=== PATIENT | female | born 1980 | race Caucasian/White ===

== ENCOUNTER 2017-03-27 06:18 | Day surgery (SDC) | payer OTHER ==
[2017-03-20 10:36] VITALS: BMI 24.5
[2017-03-27 06:57] VITALS: RESP 18
[2017-03-27] MEDS ORDERED: Propofol 10 mg/ml Inj (20 ML) ONE (07:13)
[2017-03-27] MEDS ORDERED: Succinylcholine 200 mg/10 ml Inj IV ONE (07:13)
[2017-03-27] MEDS ORDERED: Rocuronium 10 mg/ml (5 ml) ONE (07:13)
[2017-03-27] MEDS ORDERED: ePHEDrine 50 mg/ml Inj ONE (07:13)
[2017-03-27] MEDS ORDERED: Phenylephrine 10 mg/ml Inj ONE (07:14)
[2017-03-27 07:24] LABS: BASO % 0.7 % (0.0-2.0); EOS # 0.4 K/uL (0.0-0.7); EOS % 6.9 % (0.0-4.0); HEMOGLOBIN 11.3 g/dL (12.0-16.0); LYMPH # 1.7 K/uL (1.0-4.3); LYMPH % 33.7 % (20.0-40.0); MEAN CORPUSCULAR HEMOGLOBIN 26.2 pg (27.0-31.0); MEAN PLATELET VOLUME 8.5 fl (7.2-11.7); MONO # 0.4 K/uL (0.0-0.8); MONO % 8.4 % (0.0-10.0); NEUT # 2.6 K/uL (1.8-7.0); NEUT % 50.3 % (50.0-75.0); NRBC % 0.2 % (0.0-0.0); RBC 4.31 Mil/uL (3.80-5.20); RED CELL DISTRIBUTION WIDTH 20.5 % (11.5-14.5); WHITE BLOOD COUNT 5.1 K/uL (4.8-10.8)
--- NOTE | 2017-03-27 07:26 | CP.SDSHP ---
Same Day Surgery H & P - History Proposed Procedure: laparoscopic BTL Pre-Op Diagnosis: multiparity and voluntary sterilization - Previous Medical/Surgical History Previous Surgical History: D/C 1997 for spt Ab. - Allergies Allergies: Allergies No Known Allergies Allergy (Verified 03/27/17 07:01) - Current Medications Current Medications: OC - Physical Exam General Appearance: NAD w/o x3 Vital Signs: Vital Signs 03/27/17 06:55 Temperature 98.5 F Pulse Rate 73 Respiratory 18 Rate Blood Pressure 126/77 O2 Sat by Pulse 99 Oximetry Mental Status: Alert & Oriented x3 Neuro: WNL Heart: WNL Lungs: WNL GI: WNL - {Optional Preform as Required} Breast: WNL Abdomen: WNL Rectal: WNL Integument: WNL COMBAT ENGINEER: WNL - Impression Impression: multiparity and desires permanent sterilization - Date & Time Date: 03/27/17 Time: 07:27 Short Stay Discharge - Short Stay Discharge Admitting Diagnosis/Reason for Visit: Z64.1 Disposition: HOME/ ROUTINE Referrals: Navi Amezcua MD [Primary Care Provider] -
[2017-03-27] MEDS ORDERED: Lactated Ringer's 1,000 ML IV ONE (07:43)
[2017-03-27] MEDS ORDERED: Midazolam 2 MG/2 ML VIAL ONE (07:44)
[2017-03-27] MEDS ORDERED: Neostigmine Methylsulfate 3mg/3ml Syringe IV ONE (08:06)
[2017-03-27] MEDS ORDERED: Dexamethasone 4 mg/1 ml ONE (08:07)
[2017-03-27] MEDS ORDERED: Oxycodone/Acetaminophen 5/325 mg Tab PO PRN (08:32)
[2017-03-27] MEDS: HYDROmorphone 0.5 mg/0.5 ml ISec IVP PRN ×3 (08:55→09:15)
--- NOTE | 2017-03-27 13:14 | CP.SDSHP ---
Same Day Surgery H & P - Allergies Allergies: Allergies No Known Allergies Allergy (Verified 03/27/17 07:01) - Physical Exam Vital Signs: Vital Signs 03/27/17 03/27/17 03/27/17 06:55 07:00 08:32 Temperature 98.5 F 96.2 F L Pulse Rate 73 73 77 Respiratory 18 17 Rate Blood Pressure 126/77 124/77 O2 Sat by Pulse 99 100 Oximetry 03/27/17 03/27/17 03/27/17 08:45 09:00 09:15 Temperature 96.4 F L Pulse Rate 61 54 L 53 L Respiratory 18 18 18 Rate Blood Pressure 126/86 116/72 96/63 L O2 Sat by Pulse 99 98 97 Oximetry 03/27/17 03/27/17 03/27/17 09:30 09:45 10:00 Temperature 96.7 F L 97.4 F L Pulse Rate 51 L 61 62 Respiratory 18 18 18 Rate Blood Pressure 103/67 100/58 L 97/59 L O2 Sat by Pulse 96 97 98 Oximetry 03/27/17 03/27/17 03/27/17 10:25 10:29 11:11 Temperature 98.3 F 97.9 F Pulse Rate 64 95 H Respiratory 18 18 Rate Blood Pressure 138/55 L 95/54 L O2 Sat by Pulse 95 95 97 Oximetry 03/27/17 12:31 Temperature 98.4 F Pulse Rate 75 Respiratory 18 Rate Blood Pressure 107/73 O2 Sat by Pulse 97 Oximetry Short Stay Discharge - Short Stay Discharge Admitting Diagnosis/Reason for Visit: Z64.1 Referrals: Navi Amezcua MD [Primary Care Provider] - Follow-up: 2 wks in office Additional Instructions (Diet, Activity): pelvic and bed rest Appt to office 2 wks Progress Note/Discharge Note with Instructions: tolerated procedure well, no complications. Recovered well, procedure and findings explained Understands well. Will follow in office 2 wks Rx given for Percocet.
[2017-03-27] MEDS ORDERED: Oxycodone/Acetaminophen 5/325 mg Tab PO ONE (13:20)
[2017-03-27 13:33] VITALS: PULSE 69
[2017-03-27 14:15] VITALS: BP 114/71; TEMP 98; O2SAT 99
--- NOTE | 2017-03-31 00:35 | OP ---
PROCEDURE DATE: 03/27/2017 PREOPERATIVE DIAGNOSIS: Multiparity and voluntary sterilization. POSTOPERATIVE DIAGNOSIS: Multiparity and voluntary sterilization. PROCEDURE: Laparoscopic bilateral tubal sterilization using electrocoagulation. SURGEON: Navi Amezcua MD TYPE OF ANESTHESIA: General. ANESTHESIA ADMINISTERED BY: Dr. Kim ESTIMATED BLOOD LOSS: Minimal. DRAINS USED: None. REPLACEMENT USED: None. FINDINGS: 1. Cervix closed, multiparous, mobile, no gross lesion to visualization. 2. Uterus anteverted, mobile mid-sized. 3. Both tubes and ovaries appear grossly within normal limits to inspection bilaterally. 4. Bilateral tubal sterilization using electrocoagulation performed without any complication. DESCRIPTION OF PROCEDURE: The patient was taken to the operating room and placed on the operating table in a supine position. Following induction of general anesthesia, the patient was then replaced in a dorsal lithotomy position. Perineal, genital and abdominal areas were draped and prepped in the usual sterile manner. At this time, a sterile catheter was then placed into the bladder and clear fluid was evacuated from the bladder. The patient was then examined under anesthesia with some of the above findings. A heavy weighted speculum was then placed in the posterior wall of the vagina, thus exposing the cervix. The anterior lip of the cervix was then grasped using a single tooth tenaculum and retracted superiorly. At this time, the endocervical canal was then gently dilated using Dada dilators in an increasing size manner. A HUMI cannula was then introduced into the endometrial cavity and a single-tooth tenaculum was then removed. No bleeding noted. At this time, we then proceeded to give attention to the abdomen. At the umbilicus, a Veress needle was then introduced into the abdomen and about 5 liters of carbon dioxide were then introduced into the abdomen, thus creating a pneumoperitoneum. Following this, a Veress needle was then removed and a 1-cm incision was then made at the umbilicus. Under direct visualization, a trocar was then introduced into the abdomen and through the trocar sheath, a laparoscope was then introduced. Visualization of the area underneath the introduction noted no bleeding or signs of trauma. At this time, a 5-mm trocar was then placed suprapubically under direct visualization. Through this, a Visualaseppinger forceps was then introduced into a pelvic cavity. Both tubes and ovaries appeared grossly within normal limits to inspection bilaterally. The right fallopian tube was then followed to its fimbriated edge and grasped at the ampullary region and retracted superiorly. Under direct visualization, electrocoagulation was applied to the tube. About 3 cm segment of the tube was then electrocoagulated. Blanching of the tube noted to be present. Same procedure was then performed in the contralateral side without any complications. Following bilateral tubal sterilization using the electrocoagulation, all operative areas checked, hemostatically secured. The liver appeared to be free of perihepatic adhesions. No other lesions in the pelvic cavity noted to be present. Both ovaries appeared grossly within normal limits to inspection bilaterally. At this time, the pneumoperitoneum was partially evacuated, a 5-mm trocar was then removed under the direct visualization and evacuation of the pneumoperitoneum was then performed and the laparoscope at the umbilicus and the trocar was then removed under direct visualization. At this time, the fascia at the umbilicus incision was then secured using 0 Vicryl suture in a simple manner. The skin at the umbilicus and suprapubic area were then closed using 3-0 Monocryl, Dermabond was then applied . HUMI cannula was then removed. No bleeding noted. The patient tolerated the procedure well. There were no complications. She was transferred to the recovery room in satisfactory condition. Navi Amezcua MD
== END 2017-03-27 14:00 | disposition home or self-care (01) ==
LOC: H.OPSURG 06:18
PROVIDERS: ATTEND Specialist
DX: Z64.1 Problems related to multiparity (principal); Z30.2 Encounter for sterilization